=== PATIENT | female | born 1965 | race African-American/Black ===

== ENCOUNTER 2022-09-28 13:25 | Emergency (ER) | payer MEDICAID ==
[~2022-09-28] VITALS: Ht 162.6 cm; Wt 80.0 kg
[2022-09-28 14:00] VITALS: BP 148/119
== END 2022-09-28 23:30 | disposition left against medical advice (07) ==
LOC: ER 13:25
DX: Z53.21 Procedure and treatment not carried out due to patient leaving prior to being seen by health care provider (principal)
CPT/HCPCS: 82962

== ENCOUNTER 2022-09-29 14:14 | Emergency (ER) | payer MEDICAID ==
[~2022-09-29] VITALS: Ht 162.6 cm; Wt 79.0 kg
[2022-09-29 14:38] VITALS: BP 160/56
== END 2022-09-29 17:15 | disposition left against medical advice (07) ==
LOC: ER 14:14
DX: Z53.21 Procedure and treatment not carried out due to patient leaving prior to being seen by health care provider (principal)
CPT/HCPCS: 82962

== ENCOUNTER 2022-09-29 18:05 | Emergency (ER) | payer MEDICAID ==
[~2022-09-29] VITALS: Ht 152.4 cm; Wt 75.0 kg
[2022-09-29] MEDS ORDERED: ONDANSETRON 4MG ODT PO STA (23:09)
[2022-09-29 23:39] LABS: HEMOGLOBIN. 11.6 g/dL (12.0-16.0); MEAN CORPUSCULAR HEMOGLOBIN 27.7 pg (28.0-32.0); MEAN PLATELET VOLUME 10.6 fl (7.4-10.4); PLATELET 166 x1000/uL (130-400); RED BLOOD CELL COUNT 4.17 mill/uL (4.2-5.4); RED CELL DISTRIBUTION WIDTH 14.1 % (11.6-14.6)
[2022-09-29 23:47] LABS: CHLORIDE 106 mEq/L (98-107)
[2022-09-29 23:57] LABS: PLATELET ESTIMATE NORMAL
[2022-09-30 00:39] LABS: CLARITY URINE CLEAR (CLEAR); COLOR URINE YELLOW (YELLOW); KETONES URINE NEGATIVE (NEGATIVE); LEUKOCYTE ESTERASE URINE NEGATIVE (NEGATIVE); NITRITE URINE NEGATIVE (NEGATIVE); OCCULT BLOOD URINE NEGATIVE (NEGATIVE); PH URINE 5.5 (4.5-8.0); PROTEIN URINE 1+ (NEGATIVE); SPECIFIC GRAVITY URINE 1.022 (1.005-1.030); UROBILINOGEN URINE 0.2 E.U./dL (0.2-1.0)
[2022-09-30 00:49] VITALS: BP 148/80
== END 2022-09-30 00:51 | disposition home or self-care (01) ==
LOC: ER 18:05
DX: R19.7 Diarrhea, unspecified (principal); I10 Essential (primary) hypertension; E11.9 Type 2 diabetes mellitus without complications; D64.9 Anemia, unspecified; Z79.01 Long term (current) use of anticoagulants
CPT/HCPCS: 36415; 80053; 81003; 83690; 85025; 99283; Q0162

== ENCOUNTER 2022-11-02 12:32 | Emergency (ER) | payer MEDICAID | END 2022-11-02 13:33 | disposition left against medical advice (07) | LOC: ER 12:32 | DX: Z53.21 Procedure and treatment not carried out due to patient leaving prior to being seen by health care provider (principal) ==

== ENCOUNTER 2022-11-02 16:04 | Emergency (ER) | payer MEDICAID | END 2022-11-02 18:01 | disposition left against medical advice (07) | LOC: ER 16:04 | DX: Z53.21 Procedure and treatment not carried out due to patient leaving prior to being seen by health care provider (principal) ==

== ENCOUNTER 2023-02-28 08:40 | Emergency (ER) | payer MEDICAID ==
[~2023-02-28] VITALS: Ht 162.6 cm; Wt 79.5 kg
[2023-02-28 08:43] VITALS: BP 171/93
[2023-02-28] MEDS ORDERED: METF-416 MT (09:25)
[2023-02-28] MEDS ORDERED: GLIP10TA10 MT (09:25)
== END 2023-02-28 09:39 | disposition home or self-care (01) ==
LOC: ER 08:40
DX: Z20.822 Contact with and (suspected) exposure to COVID-19 (principal); E11.9 Type 2 diabetes mellitus without complications; I10 Essential (primary) hypertension; Z76.0 Encounter for issue of repeat prescription
CPT/HCPCS: 82962; 87426; 99283; C9803

== ENCOUNTER 2023-03-04 08:21 | Emergency (ER) | payer MEDICAID ==
[~2023-03-04] VITALS: Ht 165.1 cm; Wt 75.0 kg
[~2023-03-04 08:21] MED LIST: GLIP10TA10 MT; METF-416 MT
[2023-03-04 09:03] LABS: BASOPHILS % 0.7 % (0.0-2.0); EOSINOPHILS % 1.5 % (0.0-5.0); HEMATOCRIT. 36.8 % (36.0-48.0); HEMOGLOBIN. 12.1 g/dL (12.0-16.0); LYMPHOCYTES % 33.1 % (20.0-50.0); MEAN CORPUSCULAR HEMOGLOBIN 27.4 pg (28.0-32.0); MEAN CORPUSCULAR VOLUME 83.3 fL (81.0-99.0); MONOCYTES % 7.5 % (2.0-8.0); NEUTROPHILS % 57.2 % (40.0-76.0); PLATELET 196 x1000/uL (130-400); RED BLOOD CELL COUNT 4.42 mill/uL (4.2-5.4); RED CELL DISTRIBUTION WIDTH 13.9 % (11.6-14.6)
[2023-03-04 09:10] LABS: CHLORIDE 99 mEq/L (98-107)
[2023-03-04 10:59] VITALS: BP 157/68
== END 2023-03-04 11:01 | disposition home or self-care (01) ==
LOC: ER 08:21
DX: E11.65 Type 2 diabetes mellitus with hyperglycemia (principal); I10 Essential (primary) hypertension; Z79.84 Long term (current) use of oral hypoglycemic drugs
CPT/HCPCS: 36415; 80053; 82962; 85025; 99283

== ENCOUNTER 2023-03-08 08:30 | Emergency (ER) | payer MEDICAID ==
[~2023-03-08] VITALS: Ht 157.5 cm; Wt 80.0 kg
[2023-03-08 08:41] VITALS: BP 154/113
[2023-03-08] MEDS ORDERED: HYDR25TA MT (08:49)
[2023-03-08] MEDS ORDERED: ATOR40TA70 MT (08:49)
[2023-03-08] MEDS ORDERED: AMLO10TA80 MT (08:49)
== END 2023-03-08 09:02 | disposition home or self-care (01) ==
LOC: ER 08:30
DX: Z76.0 Encounter for issue of repeat prescription (principal); Z13.9 Encounter for screening, unspecified; I10 Essential (primary) hypertension
CPT/HCPCS: 82962; 99281

== ENCOUNTER 2023-03-21 12:37 | Emergency (ER) | payer MEDICAID ==
[~2023-03-21] VITALS: Ht 160 cm; Wt 85.0 kg
[~2023-03-21 12:37] MED LIST changes: +AMLO10TA80 MT; +ATOR40TA70 MT; +HYDR25TA MT
[2023-03-21 12:43] VITALS: BP 139/74
[2023-03-21] MEDS ORDERED: METF-874 MT (12:50)
[2023-03-21] MEDS ORDERED: AMLO10TA80 MT (12:50)
[2023-03-21] MEDS ORDERED: GLIP10TA10 MT (12:50)
== END 2023-03-21 16:22 | disposition home or self-care (01) ==
LOC: ER 12:37
DX: E11.9 Type 2 diabetes mellitus without complications (principal); I10 Essential (primary) hypertension; Z76.0 Encounter for issue of repeat prescription; Z79.84 Long term (current) use of oral hypoglycemic drugs; Z79.4 Long term (current) use of insulin
CPT/HCPCS: 99281; 99283

== ENCOUNTER 2024-10-15 09:26 | Emergency (ER) | payer BC, MEDICAID ==
[~2024-10-15] VITALS: Ht 154.9 cm; Wt 68.0 kg
[~2024-10-15 09:26] MED LIST changes: -GLIP10TA10 MT; +GLIP10TA17 MT; +METF-1150 MT; +TOPUD MT
[2024-10-15 09:29] VITALS: O2SAT 91
[2024-10-15 09:31] VITALS: BP 160/52; PULSE 80; RESP 16; TEMP 98.5; O2SAT 100
[2024-10-15 09:59] LABS: BASOPHILS % 0.6 % (0.0-2.0); EOSINOPHILS % 0.5 % (0.0-5.0); HEMATOCRIT. 35.9 % (36.0-48.0); HEMOGLOBIN. 11.9 g/dL (12.0-16.0); LYMPHOCYTES % 32.2 % (20.0-50.0); MEAN CORPUSCULAR HEMOGLOBIN 28.6 pg (28.0-32.0); MEAN CORPUSCULAR HGB CONC 33.1 g/dL (31.0-37.0); MEAN CORPUSCULAR VOLUME 86.6 fL (81.0-99.0); MEAN PLATELET VOLUME 10.1 fl (7.4-10.4); MONOCYTES % 5.4 % (2.0-8.0); NEUTROPHILS % 61.3 % (40.0-76.0); PLATELET 186 x1000/uL (130-400); RED BLOOD CELL COUNT 4.14 mill/uL (4.2-5.4); WHITE BLOOD COUNT 7.7 x1000/uL (4.5-11.0)
[2024-10-15 10:15] LABS: CHLORIDE 100 mEq/L (98-107); POTASSIUM 4.7 mEq/L (3.5-5.1); SODIUM 137 mEq/L (136-145)
[2024-10-15 10:17] LABS: CALCIUM 10.5 mg/dL (8.7-10.4); CARBON DIOXIDE 29 mEq/L (21-32)
[2024-10-15 10:22] LABS: UREA NITROGEN BLOOD 18 mg/dL (9-23)
[2024-10-15 11:05] LABS: CLARITY URINE CLEAR (CLEAR); COLOR URINE YELLOW (YELLOW); GLUCOSE URINE 3+ (NEGATIVE); KETONES URINE NEGATIVE (NEGATIVE); LEUKOCYTE ESTERASE URINE NEGATIVE (NEGATIVE); NITRITE URINE NEGATIVE (NEGATIVE); OCCULT BLOOD URINE NEGATIVE (NEGATIVE); PH URINE 7.5 (4.5-8.0); PROTEIN URINE NEGATIVE (NEGATIVE); SPECIFIC GRAVITY URINE 1.027 (1.005-1.030); UROBILINOGEN URINE 0.2 E.U./dL (0.2-1.0)
[2024-10-15 11:19] LABS: BACTERIA URINE NONE SEEN; RBC URINE 0-2 /hpf (0-2); SQUAMOUS EPITHELIAL CELL URINE RARE /lpf (RARE/1+); WBC URINE 0-2 /hpf (0-2); YEAST URINE NONE SEEN
[2024-10-15] MEDS: SODIUM CHLORIDE 0.9% 1,000 ML IV ONE (12:15)
[2024-10-15] MEDS: INSULIN REGULAR (HUMULIN R) 1000UNITS/10ML VIAL IV NR (14:20)
[2024-10-15] MEDS ORDERED: INSU100I28 SQ (14:25)
[2024-10-15 17:07] LABS: GLUCOSE 417 mg/dL (70-105)
== END 2024-10-15 14:57 | disposition home or self-care (01) ==
LOC: ER 09:26
DX: E11.65 Type 2 diabetes mellitus with hyperglycemia (principal); I10 Essential (primary) hypertension; Z91.148 Patient's other noncompliance with medication regimen for other reason; Z79.899 Other long term (current) drug therapy
CPT/HCPCS: 36415; 80048; 81003; 85025; 96360; 99291

== ENCOUNTER 2024-10-22 08:08 | Emergency (ER) | payer BC ==
[~2024-10-22] VITALS: Ht 154.9 cm; Wt 73.0 kg
[~2024-10-22 08:08] MED LIST changes: +INSU100I28 SQ
[2024-10-22 08:19] VITALS: O2SAT 100
[2024-10-22 08:40] LABS: BASOPHILS % 0.6 % (0.0-2.0); EOSINOPHILS % 1.2 % (0.0-5.0); HEMATOCRIT. 35.5 % (36.0-48.0); HEMOGLOBIN. 11.7 g/dL (12.0-16.0); LYMPHOCYTES % 34.9 % (20.0-50.0); MEAN CORPUSCULAR HEMOGLOBIN 28.5 pg (28.0-32.0); MEAN CORPUSCULAR VOLUME 86.5 fL (81.0-99.0); MEAN PLATELET VOLUME 10.2 fl (7.4-10.4); MONOCYTES % 6.1 % (2.0-8.0); NEUTROPHILS % 57.2 % (40.0-76.0); PLATELET 192 x1000/uL (130-400); RED CELL DISTRIBUTION WIDTH 14.1 % (11.6-14.6); WHITE BLOOD COUNT 6.5 x1000/uL (4.5-11.0)
[2024-10-22] MEDS ORDERED: MORPHINE SULFATE 2 MG/ML INJ (NOT FOR IM USE) IV ONE (08:45)
[2024-10-22] MEDS ORDERED: NITROGLYCERIN 0.4MG TABLET SL SL ONE (08:45)
[2024-10-22 08:51] LABS: CHLORIDE 107 mEq/L (98-107); POTASSIUM 3.9 mEq/L (3.5-5.1); SODIUM 140 mEq/L (136-145)
[2024-10-22 08:52] LABS: CALCIUM 9.9 mg/dL (8.7-10.4); CARBON DIOXIDE 28 mEq/L (21-32)
[2024-10-22 08:57] LABS: CREATININE 0.8 mg/dL (0.6-1.0); GLUCOSE 99 mg/dL (70-105); UREA NITROGEN BLOOD 13 mg/dL (9-23)
[2024-10-22 08:59] LABS: INR 0.9; PROTHROMBIN TIME 10.5 sec (9.6-11.0)
[2024-10-22 09:01] LABS: TROPONIN I HIGH SENSITIVITY < 4 ng/L (3.0-34)
[2024-10-22 09:02] LABS: ETHANOL BLOOD < 10 mg/dL (<10)
[2024-10-22] MEDS: ASPIRIN 325MG EC TABLET PO NR (11:21)
[2024-10-22] MEDS: NITROGLYCERIN 0.4MG TABLET SL SL NR (11:21)
[2024-10-22] MEDS: MORPHINE SULFATE 2 MG/ML INJ (NOT FOR IM USE) IV NR (11:22)
[2024-10-22 11:31] LABS: TROPONIN I HIGH SENSITIVITY < 4 ng/L (3.0-34)
[2024-10-22] MEDS ORDERED: DOCUSATE SODIUM 100MG CAPSULE PO PRN (12:15)
[2024-10-22] MEDS ORDERED: IPRATROPIUM/ALBUTEROL 0.5-3(2.5)MG/3ML NEB HHN PRN (12:15)
[2024-10-22] MEDS ORDERED: IPRATROPIUM/ALBUTEROL 0.5-3(2.5)MG/3ML NEB HHN SCH (12:15)
[2024-10-22] MEDS ORDERED: ACETAMINOPHEN 325MG TABLET PO PRN ×2 (12:15)
[2024-10-22] MEDS ORDERED: ONDANSETRON HCL 4MG/2ML INJ IV PRN (12:15)
[2024-10-22] MEDS ORDERED: CLONIDINE 0.1MG TABLET PO PRN (12:15)
[2024-10-22] MEDS ORDERED: GUAIFENESIN 200MG/10ML SUGAR FREE UDC PO PRN (12:15)
[2024-10-22 12:19] LABS: CLARITY URINE CLEAR (CLEAR); COLOR URINE YELLOW (YELLOW); GLUCOSE URINE NEGATIVE (NEGATIVE); KETONES URINE NEGATIVE (NEGATIVE); LEUKOCYTE ESTERASE URINE NEGATIVE (NEGATIVE); NITRITE URINE NEGATIVE (NEGATIVE); OCCULT BLOOD URINE NEGATIVE (NEGATIVE); PH URINE 7.5 (4.5-8.0); PROTEIN URINE NEGATIVE (NEGATIVE); SPECIFIC GRAVITY URINE 1.011 (1.005-1.030); UROBILINOGEN URINE 0.2 E.U./dL (0.2-1.0)
[2024-10-22 12:32] LABS: *AMPHETAMINES SCREEN URINE NEGATIVE (NEGATIVE); *BARBITURATES SCREEN URINE NEGATIVE (NEGATIVE); *BENZODIAZEPINES SCREEN URINE NEGATIVE (NEGATIVE)
[2024-10-22 12:33] LABS: *COCAINE SCREEN URINE NEGATIVE (NEGATIVE); CANNABINOID URINE SCREEN NEGATIVE (NEGATIVE); METHADONE URINE SCREEN NEGATIVE (NEGATIVE); OPIATES URINE SCREEN NEGATIVE (NEGATIVE); PHENCYCLIDINE URINE SCREEN NEGATIVE (NEGATIVE)
[2024-10-22 12:34] LABS: ECSTASY MDMA SCREEN URINE NEGATIVE (NEGATIVE)
[2024-10-22 12:44] VITALS: BP 154/60; PULSE 70; RESP 16; TEMP 36.55848; O2SAT 100
[2024-10-22] MEDS ORDERED: ENOXAPARIN 40MG/0.4ML SYR SUBCUT SCH (13:00)
[2024-10-22 13:20] LABS: IRON 69 ug/dL (50-170)
[2024-10-22 13:23] LABS: TOTAL IRON BINDING CAPACITY 277 ug/dl (250-425)
[2024-10-22 14:38] LABS: FERRITIN 17 ng/mL (10-291); FOLIC ACID (FOLATE) SERUM 12.45 ng/mL (>5.38)
[2024-10-22 14:39] LABS: VITAMIN B12 SERUM 586 pg/mL (211-911)
[2024-10-23] MEDS ORDERED: PANTOPRAZOLE 40MG DR TABLET PO SCH (07:50)
== END 2024-10-22 12:46 | disposition left against medical advice (07) ==
LOC: ER 08:08 → EDBEDREQ 10:08 → CANBEDREQ 12:45 → ER 12:46
DX: R07.9 Chest pain, unspecified (principal); I10 Essential (primary) hypertension; E11.9 Type 2 diabetes mellitus without complications; Z79.899 Other long term (current) drug therapy
CPT/HCPCS: 80305; 80048; 81003; 80320; 82607; 82728; 82746; 83540; 83550; 85025; 85044; 85610; 84484; 36415; 71045; 93005; 96374; 99285; J2270; G0480

== ENCOUNTER 2024-10-29 09:44 | Emergency (ER) | payer BC, MEDICAID ==
[~2024-10-29] VITALS: Ht 160 cm; Wt 74.0 kg
[2024-10-29 09:48] VITALS: O2SAT 97
[2024-10-29 09:51] VITALS: BP 131/79; PULSE 82; RESP 18; TEMP 98; O2SAT 99
[2024-10-29] MEDS ORDERED: HYDR25TA MT (10:47)
[2024-10-29] MEDS ORDERED: ATOR40TA70 MT (10:47)
[2024-10-29] MEDS ORDERED: METF-416 MT (10:47)
[2024-10-29] MEDS ORDERED: AMLO10TA80 MT (10:47)
[2024-10-29] MEDS ORDERED: GLIP10TA17 MT (10:48)
[2024-10-29] MEDS ORDERED: INSU100I28 SQ (10:48)
[2024-10-29] MEDS ORDERED: TOPUD MT (10:48)
== END 2024-10-29 11:59 | disposition home or self-care (01) ==
LOC: ER 09:44
DX: M79.602 Pain in left arm (principal); M79.601 Pain in right arm; Z76.0 Encounter for issue of repeat prescription; E11.9 Type 2 diabetes mellitus without complications; I10 Essential (primary) hypertension; E78.5 Hyperlipidemia, unspecified; Z79.4 Long term (current) use of insulin; Z79.84 Long term (current) use of oral hypoglycemic drugs; Z79.899 Other long term (current) drug therapy
CPT/HCPCS: 99282

== ENCOUNTER 2025-02-18 12:34 | Emergency (ER) | payer BC, MEDICAID ==
[~2025-02-18] VITALS: Ht 162.6 cm; Wt 87.0 kg
[2025-02-18 12:55] VITALS: O2SAT 99
[2025-02-18 13:14] VITALS: BP 140/79; PULSE 75; RESP 18; TEMP 36.7; O2SAT 98
[2025-02-18] MEDS: MECLIZINE 25MG TABLET PO ONE (13:36)
[2025-02-18 15:04] LABS: BASOPHILS % 0.4 % (0.0-2.0); CHLORIDE 108 mEq/L (98-107); HEMATOCRIT. 35.4 % (36.0-48.0); HEMOGLOBIN. 11.5 g/dL (12.0-16.0); LYMPHOCYTES % 30.3 % (20.0-50.0); MEAN CORPUSCULAR HEMOGLOBIN 28.7 pg (28.0-32.0); MEAN CORPUSCULAR HGB CONC 32.6 g/dL (31.0-37.0); MEAN PLATELET VOLUME 10.3 fl (7.4-10.4); MONOCYTES % 7.3 % (2.0-8.0); PLATELET 188 x1000/uL (130-400); RED BLOOD CELL COUNT 4.03 mill/uL (4.2-5.4); RED CELL DISTRIBUTION WIDTH 13.6 % (11.6-14.6); SODIUM 144 mEq/L (136-145); WHITE BLOOD COUNT 7.7 x1000/uL (4.5-11.0)
[2025-02-18 15:05] LABS: CALCIUM 9.5 mg/dL (8.7-10.4); CARBON DIOXIDE 27 mEq/L (21-32)
[2025-02-18 15:10] LABS: CREATININE 0.8 mg/dL (0.6-1.0); GLUCOSE 131 mg/dL (70-105); UREA NITROGEN BLOOD 17 mg/dL (9-23)
[2025-02-18] MEDS ORDERED: MECL-299 MT (15:14)
== END 2025-02-18 15:32 | disposition home or self-care (01) ==
LOC: ER 12:34
DX: R42 Dizziness and giddiness (principal); E11.9 Type 2 diabetes mellitus without complications; I10 Essential (primary) hypertension; Z79.4 Long term (current) use of insulin; Z79.84 Long term (current) use of oral hypoglycemic drugs; Z79.899 Other long term (current) drug therapy
CPT/HCPCS: 99284; 70450; 80048; 85025; 36415; 93005; J8597